=== PATIENT | female | born 1940 | race Caucasian/White ===

== ENCOUNTER 2017-03-01 10:41 | Inpatient (IN) | payer MEDICARE, OTHER ==
[2017-03-01] VITALS (9 sets, daily range): BP systolic 90–149; BP diastolic 59–79
[~2017-03-01] VITALS: Ht 167.6 cm; Wt 144.2 kg
--- NOTE | 2017-03-01 10:45 | NUR ---
patient brought in from [facility] via ambulance into room 1b. 12 lead ekg done. seen by dr lopez.
--- NOTE | 2017-03-01 11:10 | NUR ---
patient is confused, tracheostomy intact. connected to o2 cllar at 2 liters /min
[2017-03-01] MEDS ORDERED: IV NORMAL SALINE 1000 ML BAG IV ONE (11:15)
[2017-03-01] MEDS ORDERED: GENTAMICIN SULFATE INJ 80 MG in IV DEXTROSE 5% 100 ML IV ONE (11:15)
[2017-03-01] MEDS ORDERED: VANCOMYCIN IV 1,000 MG in IV DEXTROSE 5% 250 ML IV ONE (11:15)
[2017-03-01] MEDS ORDERED: METRONIDAZOLE 500 MG/NS 100ML 100 ML IV ONE ×2 (11:15→11:48)
[2017-03-01] MEDS ORDERED: MEROPENEM 1 G in IV NORMAL SALINE 100 ML IV ONE (11:15)
--- NOTE | 2017-03-01 11:17 | NUR ---
dr lopez at the bedside. triple lumen insertion in progress.
--- NOTE | 2017-03-01 11:27 | NUR ---
triple lumen catheter in via right femoral vein. blood specimen obtained and sent to lab for tests.
[2017-03-01 11:51] LABS: EOSINOPHILS % (AUTO) 0.4 % (0.0-7.0); HEMATOCRIT 35.8 % (31.2-41.9); HEMOGLOBIN 11.7 g/dL (10.9-14.3); LYMPHOCYTES # (AUTO) 0.3 K/uL (20.0-40.0); LYMPHOCYTES % (AUTO) 5.7 % (20.5-51.5); MEAN CORPUSCULAR HEMOGLOBIN 27.6 uug (24.7-32.8); MEAN CORPUSCULAR HGB CONC 33 g/dL (32.3-35.6); MEAN CORPUSCULAR VOLUME 84.1 fL (75.5-95.3); MONOCYTES # (AUTO) 0.3 K/uL (2.0-10.0); MONOCYTES % (AUTO) 6.3 % (0.0-11.0); NEUTROPHILS # (AUTO) 4.9 K/uL (1.8-8.9); NEUTROPHILS % (AUTO) 87.6 % (38.5-71.5); PLATELET COUNT (AUTO) 156 K/uL (179-408); RED BLOOD CELL COUNT(AUTO) 4.26 MIL/uL (3.63-4.92); RED CELL DISTRIBUTION WIDTH 18.1 % (12.3-17.7); WHITE BLOOD COUNT (AUTO) 5.5 K/uL (3.8-11.8)
[2017-03-01 11:53] LABS: TROPONIN I < 0.017 ng/mL (0.00-0.056)
[2017-03-01 11:58] LABS: ALBUMIN 2.4 g/dL (3.4-5.0); BILIRUBIN,DIRECT 0.3 mg/dL (0.0-0.2); CALCIUM 9.5 mg/dL (8.5-10.1); POTASSIUM 4.6 mmol/L (3.5-5.1); TOTAL PROTEIN, SERUM 6.9 g/dL (6.4-8.2)
[2017-03-01 12:04] LABS: CREATININE 4.1 mg/dL (0.6-1.3)
[2017-03-01] MEDS ORDERED: ATOR40TA GT (12:06)
[2017-03-01] MEDS ORDERED: DIPH25TA25 PO (12:06)
[2017-03-01] MEDS ORDERED: POTA20PA4 GT (12:06)
[2017-03-01] MEDS ORDERED: FAMO20TA8 GT (12:06)
[2017-03-01] MEDS ORDERED: [UNRECOGNIZED DRUG - OTHER] GT (12:06)
[2017-03-01] MEDS ORDERED: HYDR1TOW4 TP (12:06)
[2017-03-01] MEDS ORDERED: FURO40TA5 GT (12:06)
[2017-03-01] MEDS ORDERED: LORA0.5T PO (12:06)
[2017-03-01] MEDS ORDERED: LACT1TAB12 PO (12:06)
[2017-03-01] MEDS ORDERED: AMLO10TA2 GT (12:06)
[2017-03-01] MEDS ORDERED: HYDR1LIQ4 GT (12:06)
[2017-03-01] MEDS ORDERED: VITA113.3 TP (12:06)
[2017-03-01] MEDS ORDERED: METO50TA3 GT (12:06)
[2017-03-01] MEDS ORDERED: METO5SOL19 GT (12:06)
[2017-03-01] MEDS ORDERED: ACETAMINOPHEN SUPP RC (12:06)
[2017-03-01] MEDS ORDERED: IPRA3AMP IH ×2 (12:06)
[2017-03-01] MEDS ORDERED: ZINC220C6 GT (12:06)
[2017-03-01] MEDS ORDERED: ACET160S GT (12:06)
[2017-03-01] MEDS ORDERED: ASCO500T10 GT (12:06)
--- NOTE | 2017-03-01 12:19 | NUR ---
back to room post ct head. IV fluid started and flagyl started
[2017-03-01] MEDS ORDERED: GENTAMICIN SULFATE 80 MG/2 ML VIAL ONE (12:38)
[2017-03-01] MEDS ORDERED: MEROPENEM 1 G VIAL IV ONE (12:40)
[2017-03-01] MEDS ORDERED: VANCOMYCIN IV 200 ML ONE (12:41)
[2017-03-01 13:02] LABS: BAND % (MANUAL) 5 % (0-10); EOSINOPHILS % (MANUAL) 1 % (0-8); LYMPHOCYTES % (MANUAL) 15 % (20-40); MONOCYTES % (MANUAL) 5 % (2-10); NEUTROPHILS % (MANUAL) 74 % (42-75)
[2017-03-01 13:03] LABS: ANISOCYTOSIS 2+; PLATELET ESTIMATE ADEQUATE
--- NOTE | 2017-03-01 13:12 | NUR ---
attempted insertion of lock catheter , unsuccessful.
--- NOTE | 2017-03-01 13:17 | NUR ---
lock catheter #16 inserted aseptically.
--- NOTE | 2017-03-01 14:05 | NUR ---
report given to Augustine Stone RN . patient being admitted to ccu3 under Dr de souza
--- NOTE | 2017-03-01 14:15 | NUR ---
Telephone SBAR report received by TOLL MECHANICUCHE Martinez.
--- NOTE | 2017-03-01 14:20 | NUR ---
note: vital signs flowsheet states ET tube but [atient has trach tube to tpiece
--- NOTE | 2017-03-01 15:00 | NUR ---
transferred to room ccu3.
--- NOTE | 2017-03-01 15:06 | NUR ---
Pt received from ER with ed transporter. Pt A-fib HR 120's on monogram machine operator. Pt non-verbal and unable to follow commands. Pt stable and nad noted upon admission.
--- NOTE | 2017-03-01 16:45 | NUR ---
Spoke with Graham (son): on the telephone and updated on plan of care and pt's status. Son stated to keep the pt full code.
[2017-03-01] MEDS ORDERED: IV NS 1000 ML 1,000 ML IV PRN (18:00)
[2017-03-01] MEDS ORDERED: ACETAMINOPHEN 650 MG SUPP.RECT RC PRN (18:00)
[2017-03-01] MEDS ORDERED: DOPamine IV DRIP 800 MG in IV DEXTROSE 5% 250 ML IV PRN (18:00)
--- NOTE | 2017-03-01 18:35 | NUR ---
CLINICAL PHARMACY NOTE:VANCOMYCIN DOSING Request for vancomycin dosing on 76 y/o female 5'6" 250lb for sepsis Temp 97.3, BUN 95 Scr 4.1 WBC 5.5 bands 5 also on Merrem patient received vancomycin 1 gm in ER at 1238. Will order another 500mg of vancomycin ivpb today for a total of 1500mg today Random vancomycin level ordered for noon 03/02. Will dose base on fall off levels due to decreased renal function. Will continue to monitor
--- NOTE | 2017-03-01 19:00 | NUR ---
End of shift: Pt resting on Barimaxx bed with fall precautions and safety measures maintained. school lunch monitor and alarms working properly wnl. IV fluid bolus (sepsis protocol) infusing as ordered. Endorsed plan of care to artist model RN.
[2017-03-01 19:11] LABS: *BLOOD, URINE Trace-intact (NEGATIVE); *CLARITY,URINE CLOUDY (CLEAR); *COLOR,URINE DARK YELLOW (YELLOW); *KETONES,URINE 1+ (NEGATIVE); *PROTEIN,URINE 2+ (NEGATIVE); *UROBILINOGEN,URINE 0.2 E.U./dl (NORMAL); LEUKOCYTE ESTERASE ,URINE 1+ (NEGATIVE); NITRITE, URINE NEGATIVE (NEGATIVE); UGLUCOSE NEGATIVE (NEGATIVE)
[2017-03-01 19:12] LABS: *BILIRUBIN,URIN 2+ (NEGATIVE)
[2017-03-01 19:17] LABS: BACTERIA,URINE FEW /HPF (NONE SEEN); RBC,URINE 0-3 /HPF (0-3); SQUAMOUS EPITHELIAL CELL,UR FEW /HPF (NONE SEEN); WBC,URINE 20-50 /HPF (0-3)
--- NOTE | 2017-03-01 19:30 | NUR ---
Report received. Patient on trache mask mumbling incomprehensible sounds, doesn't follow any commands. Monitor: Afib rate 120's. Sepsis fluid challenge in progress. Addendum: 03/02/17 at 0746 by ROM HOOKS RN Amended: Links added.
[2017-03-01 19:31] LABS: *CREATININE,URINE 136.3 mg/dL (30-125); *URINE TOTAL PROTEIN RANDOM 320.3 mg/dL (<150/24HR)
[2017-03-01] MEDS ORDERED: VANCOMYCIN IV 500 MG in IV DEXTROSE 5% 100 ML IV ONE (20:00)
[2017-03-01] MEDS: ENOXAPARIN SODIUM 30 MG/0.3 ML DISP.SYRIN SUBCUT SCH (21:14)
--- NOTE | 2017-03-01 21:40 | NUR ---
Spoke to Dr. Davis re: patient's condition. No new orders. Addendum: 03/02/17 at 0743 by ROM HOOKS RN Amended: Links added.
[2017-03-01] MEDS: IV NS 1000 ML 1,000 ML IV PRN (21:45)
[2017-03-02] VITALS (24 sets, daily range): BP systolic 97–156; BP diastolic 40–86
[2017-03-02] MEDS: MEROPENEM 500 MG in IV NORMAL SALINE 50 ML IV SCH ×2 (02:05→13:59)
[2017-03-02] MEDS: Z GUARD REMEDY PASTE 57 GM TUBE TOP PRN (02:07)
[2017-03-02 05:26] LABS: CALCIUM 8.4 mg/dL (8.5-10.1); PHOSPHOROUS 4.3 mg/dL (2.5-4.9); POTASSIUM 4.2 mmol/L (3.5-5.1); TOTAL PROTEIN, SERUM 5.8 g/dL (6.4-8.2)
[2017-03-02 05:38] LABS: CREATININE 3.7 mg/dL (0.6-1.3)
[2017-03-02 05:55] LABS: BASOPHILS % (AUTO) 0.2 % (0.0-2.0); EOSINOPHILS # (AUTO) 0.1 K/uL (0.0-0.7); EOSINOPHILS % (AUTO) 2.3 % (0.0-7.0); HEMATOCRIT 29.8 % (31.2-41.9); LYMPHOCYTES # (AUTO) 0.3 K/uL (20.0-40.0); LYMPHOCYTES % (AUTO) 9.7 % (20.5-51.5); MEAN CORPUSCULAR HEMOGLOBIN 28.3 uug (24.7-32.8); MEAN CORPUSCULAR HGB CONC 34 g/dL (32.3-35.6); MEAN CORPUSCULAR VOLUME 84.2 fL (75.5-95.3); MONOCYTES # (AUTO) 0.2 K/uL (2.0-10.0); MONOCYTES % (AUTO) 7.3 % (0.0-11.0); NEUTROPHILS # (AUTO) 2.3 K/uL (1.8-8.9); NEUTROPHILS % (AUTO) 80.5 % (38.5-71.5); PLATELET COUNT (AUTO) 111 K/uL (179-408); RED BLOOD CELL COUNT(AUTO) 3.54 MIL/uL (3.63-4.92); RED CELL DISTRIBUTION WIDTH 18.6 % (12.3-17.7); WHITE BLOOD COUNT (AUTO) 2.9 K/uL (3.8-11.8)
[2017-03-02 06:12] LABS: ANISOCYTOSIS 2+; BAND % (MANUAL) 2 % (0-10); LYMPHOCYTES % (MANUAL) 13 % (20-40); MONOCYTES % (MANUAL) 9 % (2-10); NEUTROPHILS % (MANUAL) 76 % (42-75); PLATELET ESTIMATE DECREASED
[2017-03-02] MEDS: IV NS 1000 ML 1,000 ML IV PRN ×2 (06:50→18:40)
--- NOTE | 2017-03-02 08:00 | NUR ---
[facility] A[facility] OF PATIENT NEVER INITIATED PRESSORS AND HAS BEEN STABLE THROUGH THE NIGHT WHILE ROUNDING POSSIBLE DOWNGRADABLE.
[2017-03-02] MEDS: PANTOPRAZOLE SODIUM 40 MG VIAL IV SCH (08:23)
--- NOTE | 2017-03-02 14:50 | NUR ---
WOUND CARE CONSULT: PT PRESENTS WITH MULTIPLE SKIN ISSUES, PRESENT ON ADMISSION INCLUDING FLAKY SKIN, SMALL CALLUSES TO HEELS, ABDOMINAL WOUND AND OLD G TUBE SITE WITH PURULENT DRAINAGE AND SURROUNDING REDNESS. RECOMMEND SURGICAL CONSULT. SACRAL STAGE II ULCER NOTED, PRESENT ON ADMISSION. PT ON [facility] BED WITH ETS AIR. ALL SKIN AND WOUND RECOMMENDATIONS DISCUSSED WITH NURSING STAFF. MD IN AGREEMENT WITH PLAN OF CARE. Addendum: 03/02/17 at 1452 by MARINO VEE RN Amended: Links added.
[2017-03-02] MEDS ORDERED: MINERAL OIL/PETROLATUM,WHITE 57 GM TUBE TOP PRN (15:00)
--- NOTE | 2017-03-02 15:00 | NUR ---
WOUND CARE NURSE [facility] GT SITE. THERE WAS SURGEON CONSULT EVA FOR PHLEGMON FORMATION. LUIS FERNANDO INFORMED NOT CANDIDATE FOR PEG PLACEMENT DUE TO CT RESULT UNTIL PATIENT PHLEGMON RESOLVES AND NGT RECOMMENDATION FOR NUTRITION.
--- NOTE | 2017-03-02 16:17 | NUR ---
CLINICAL PHARMACY NOTE:VANCOMYCIN DOSING Subjective: Continuation of vancomycin dosing on 76 y/o female 5'6" 250lb for sepsis Objective: Temp 99.2 BUN 90 Scr 3.7 WBC 2.9 Random today @ 1200: 20.8 patient received vancomycin 1 gm in ER 03/01@ 1238.Extra dose of 500mg of vancomycin ivpb was then given at 2000 on 03/01 for a total of 1500mg on 03/01.Random due for noon today was supratherapeutic. Based on resolving Scr (MICHEAL), will continue to dose base on fall off levels. No dose will be given today, repeat random level due with tomorrow am labs. Will check and dose as appropriate. Will continue to monitor
--- NOTE | 2017-03-02 19:30 | NUR ---
Report received. Patient sleeping, easily arouses to name. No appropriate verbal responses. With trache, O2 trache mask 30%. Sat above 94%. NAD noted. On the Barimaxx @ air bed. Assessment done. Addendum: 03/03/17 at 0138 by ROM HOOKS RN Amended: Links added.
--- NOTE | 2017-03-02 20:30 | NUR ---
Abdominal wound culture sent to lab. Addendum: 03/02/17 at 2051 by ROM HOOKS RN Amended: Links added.
[2017-03-02] MEDS: ENOXAPARIN SODIUM 30 MG/0.3 ML DISP.SYRIN SUBCUT SCH (20:42)
[2017-03-03] VITALS (24 sets, daily range): BP systolic 110–152; BP diastolic 64–108
--- NOTE | 2017-03-03 | NUR ---
Flexi seal draining thick brown stools. Irrigated gently. Remains in Afib rate 100's-120's. BP stable. Addendum: 03/03/17 at 0738 by ROM HOOKS RN Amended: Links added.
[2017-03-03] MEDS: MEROPENEM 500 MG in IV NORMAL SALINE 50 ML IV SCH ×2 (01:39→13:40)
--- NOTE | 2017-03-03 04:00 | NUR ---
Am care rendered. Patient cooperative. Addendum: 03/03/17 at 0740 by ROM HOOKS RN Amended: Links added.
[2017-03-03] MEDS: IV NS 1000 ML 1,000 ML IV PRN ×2 (04:26→17:50)
[2017-03-03 05:28] LABS: ALBUMIN 1.9 g/dL (3.4-5.0); BILIRUBIN,TOTAL 0.8 mg/dL (0.2-1.0); CALCIUM 8.3 mg/dL (8.5-10.1); MAGNESIUM 2.8 mg/dL (1.8-2.4); PHOSPHOROUS 4.7 mg/dL (2.5-4.9); POTASSIUM 3.5 mmol/L (3.5-5.1); VANCOMYCIN,RANDOM 16.6 ug/mL (18.0-26.0)
[2017-03-03 05:36] LABS: BASOPHILS % (AUTO) 0.1 % (0.0-2.0); EOSINOPHILS # (AUTO) 0.3 K/uL (0.0-0.7); EOSINOPHILS % (AUTO) 9.4 % (0.0-7.0); HEMOGLOBIN 9.8 g/dL (10.9-14.3); LYMPHOCYTES # (AUTO) 0.4 K/uL (20.0-40.0); LYMPHOCYTES % (AUTO) 11.8 % (20.5-51.5); MEAN CORPUSCULAR HEMOGLOBIN 28.6 uug (24.7-32.8); MEAN CORPUSCULAR HGB CONC 34 g/dL (32.3-35.6); MEAN CORPUSCULAR VOLUME 84.8 fL (75.5-95.3); MONOCYTES # (AUTO) 0.3 K/uL (2.0-10.0); NEUTROPHILS # (AUTO) 2.1 K/uL (1.8-8.9); NEUTROPHILS % (AUTO) 69.7 % (38.5-71.5); PLATELET COUNT (AUTO) 119 K/uL (179-408); RED BLOOD CELL COUNT(AUTO) 3.41 MIL/uL (3.63-4.92); RED CELL DISTRIBUTION WIDTH 18.6 % (12.3-17.7); WHITE BLOOD COUNT (AUTO) 3.1 K/uL (3.8-11.8)
[2017-03-03 05:51] LABS: BAND % (MANUAL) 4 % (0-10); EOSINOPHILS % (MANUAL) 9 % (0-8); LYMPHOCYTES % (MANUAL) 15 % (20-40); MONOCYTES % (MANUAL) 8 % (2-10); NEUTROPHILS % (MANUAL) 64 % (42-75)
[2017-03-03 05:52] LABS: ANISOCYTOSIS 2+; PLATELET ESTIMATE DECREASED
--- NOTE | 2017-03-03 06:00 | NUR ---
Shahidi seal irrigated again. Draining liquid brown yellow stools. Condition unchanged. VS stable. Addendum: 03/03/17 at 0742 by ROM HOOKS RN Amended: Links added.
[2017-03-03] MEDS: PANTOPRAZOLE SODIUM 40 MG VIAL IV SCH (08:36)
--- NOTE | 2017-03-03 08:55 | NUR ---
Dr. Cadena in the unit to see patient; full report given.
[2017-03-03] MEDS ORDERED: VANCOMYCIN IV 1,500 MG in IV DEXTROSE 5% 500 ML IV ONE (09:00)
--- NOTE | 2017-03-03 09:01 | NUR ---
Dr. Ross GI services in the unit to see patient; full report given orders to continue monitor and await for surgery consult.
[2017-03-03 09:29] LABS: ABG BASE EXCESS -5.2 mmol/L; ABG HCO3 18.6 mmol/L; ABG PCO2 31.7 mmHg (35.0-45.0); ABG PH 7.387 (7.350-7.450); ABG PO2 107.8 mmHg (75.0-100.0); ABG SITE RIGHT RADIAL; VENT MODE COOL AEROSOL
--- NOTE | 2017-03-03 10:23 | NUR ---
Patient placed on High Flow to keep SPO2 above 92%. 80% FIO2.
--- NOTE | 2017-03-03 10:38 | NUR ---
CLINICAL PHARMACY NOTE:VANCOMYCIN DOSING Subjective: Continuation of vancomycin dosing on 76 y/o female 5'6" 250lb for sepsis Objective: Temp 98.6 BUN 80 Scr 3 (MICHEAL) WBC 5.5 Random today @ 0600: 16.6 Plan Since random level today is within therapeutic range, will give vancomycin 1500mg IVPB x1 today at 0900. Based on resolving Scr (MICHEAL), will continue to dose base on fall off levels. Will review srcr in am & decide when to order the next random level for further dosing. Will continue to monitor
[2017-03-03 14:10] LABS: PTH, INTACT 31 pg/mL (15-65)
--- NOTE | 2017-03-03 19:08 | NUR ---
Dr. Manning in the unit to see patient full report given.
--- NOTE | 2017-03-03 19:30 | NUR ---
Report received. Patient AA, follows simple commands. On contact isolation pending results of cultures. O2 by T piece @ 30 %. sat above 94%. Assessment completed. Dr. Gifford here to see patient. Call placed to Dr. Manning to clarify orders of wound cultures.
--- NOTE | 2017-03-03 19:45 | NUR ---
Dr. Manning called back. Informed that Dr. Gifford will do incision and drainage of abdominal abscess tomorrow. Dr. Manning ordered to change all cultures of wound tomorrow during the procedure.
--- NOTE | 2017-03-03 20:30 | NUR ---
Abdominal wound care treatment done. With extending erythema noted to L side of abdomen.
--- NOTE | 2017-03-03 20:50 | NUR ---
Patient' son Graham called and informed of surgery for tomorrow. Phone consent obtained. Addendum: 03/03/17 at 2135 by ROM HOOKS RN Amended: Links added.
--- NOTE | 2017-03-03 21:35 | NUR ---
Call placed to Dr. Gifford re: Lovenox dose @ 2100. Dr. Gifford called back and okayed to give dose of Lovenox tonight.
[2017-03-03] MEDS: ENOXAPARIN SODIUM 30 MG/0.3 ML DISP.SYRIN SUBCUT SCH (21:40)
--- NOTE | 2017-03-03 22:35 | NUR ---
Transferred to 208. Report given to Ramandeep IVEY.
--- NOTE | 2017-03-03 22:37 | NUR ---
PT WITH RT ASSIST FOR TRANSPORT @ 22:30, FROM CCU -3 TO 208 , DOING WELL, PT WITH NO RESP. DISTRESS NOTED, PT WITH TRACH ,BACK TO COOL AEROSOL VIA T/TUBE @ 30%. Jag STYLESP Addendum: 03/03/17 at 2240 by NATHANIEL ARIAS RT Amended: Links added.
[2017-03-04] VITALS (12 sets, daily range): BP systolic 109–171; BP diastolic 65–101
[2017-03-04] MEDS ORDERED: DILTIAZEM HCL 25 MG IV IV ONE (02:00)
--- NOTE | 2017-03-04 02:01 | NUR ---
nsg: pt is in rapid afib with hr 129-140's, with bp of 114/61. spoke with Dr. Lyon, received order for cardizem 10mg ivp x 1.
[2017-03-04] MEDS: MEROPENEM 500 MG in IV NORMAL SALINE 50 ML IV SCH ×2 (02:04→17:33)
--- NOTE | 2017-03-04 02:04 | NUR ---
nsg: cardizem 10mg ivp was given, with hr of 130's afib rvr. cont to monitor.
--- NOTE | 2017-03-04 06:00 | NUR ---
nsg: pt awake, confused. tele, afib hr 100-110. all needs attended. cont to monitor.
[2017-03-04 08:29] LABS: A/G RATIO 0.8 (0.7-1.7); ALBUMIN 2.2 g/dL (2.9-4.4); ALPHA-1-GLOBULIN 0.4 g/dL (0.0-0.4); ALPHA-2-GLOBULIN 0.9 g/dL (0.4-1.0); BETA GLOBULIN 0.8 g/dL (0.7-1.3); GAMMA GLOBULIN 0.9 g/dL (0.4-1.8); GLOBULIN, TOTAL 2.9 g/dL (2.2-3.9); M-SPIKE Not Observed g/dL (Not Observed)
[2017-03-04] MEDS: PANTOPRAZOLE SODIUM 40 MG VIAL IV SCH (09:06)
[2017-03-04 09:22] LABS: CALCIUM 8.5 mg/dL (8.5-10.1); POTASSIUM 3.1 mmol/L (3.5-5.1)
[2017-03-04 09:34] LABS: CREATININE 2.1 mg/dL (0.6-1.3)
--- NOTE | 2017-03-04 10:22 | NUR ---
CLINICAL PHARMACY NOTE:VANCOMYCIN DOSING Subjective: Continuation of vancomycin dosing on 76 y/o female for sepsis due to bacteremia & skin& soft tissue infection of abdominal wall Objective: Temp 98.2 BUN 65 Scr 2.1 (MICHEAL) WBC 5.5 (03/03) Plan Will continue to dose base on fall off levels (unstable srcr). Patient received vancomycin 1500mg IVPB x1 on 03/03 at 0830.Since srcr has decreased, will check vancomycin random level today at 1800. Will review level when available & dose further if needed. Will continue to monitor
[2017-03-04] MEDS ORDERED: BUPIVACAINE/EPI PF 0.5% 10 ML VIAL ONE (12:06)
[2017-03-04] MEDS ORDERED: LIDOCAINE HCL 1% 20 ML VIAL ONE (12:07)
[2017-03-04] MEDS ORDERED: ROCURONIUM BROMIDE 50 MG/5 ML VIAL ONE (13:31)
[2017-03-04] MEDS ORDERED: PROPOFOL 200 MG/20 ML BOTTLE IV ONE (13:44)
[2017-03-04] MEDS ORDERED: IV 0.45% SODIUM CHLORIDE 1000 ML BAG IV ONE (13:44)
[2017-03-04] MEDS ORDERED: ESMOLOL HCL 100 MG/10 ML VIAL IV ONE (13:44)
[2017-03-04] MEDS ORDERED: SEVOFLURANE 250 ML BOTTLE IH ONE (13:44)
--- NOTE | 2017-03-04 13:44 | NUR ---
PT TRANSPORTED TO SURGERY FOR SCHEDULED I&D OF ABDOMINAL WOUND OF GT INSERTION SITE. STABLE. NOTE THAT PHYSICIAN DR. KATHLEEN AWARE OF PT'S SODIUM OF 162, SPOKE WITH ANESTHESIOLOGIST IN THE OR.
--- NOTE | 2017-03-04 14:45 | NUR ---
Pt in recovery room, post op, placed on vent: Carey with settings: A/C 16, 600, +5, FiO2 30%, no abg per . stated to wean pt to cool aerosol as tolerated, per Tamela IVEY we will contact for weaning orders.. will continue to monitor..
[2017-03-04] MEDS ORDERED: MIDAZOLAM HCL 2 MG/2 ML VIAL ONE (14:58)
[2017-03-04] MEDS ORDERED: LABETALOL HCL 100 MG/20 ML VIAL ONE (15:12)
[2017-03-04] MEDS ORDERED: FENTANYL CITRATE 100 MCG/2 ML AMPUL ONE (15:16)
--- NOTE | 2017-03-04 16:00 | NUR ---
Pt transferred to CCU, BVM used for transport, assisted with transport by Sangeetha HARTMAN and Tamela IVEY.. transported without incident..
--- NOTE | 2017-03-04 16:10 | NUR ---
received patient from pacu arousable and alert with trach connected to ventilator.iv changed to right ac because the right femoral triple lumen is suspected to be in artery not vein according to anesthesiologist dr. turner and vascular md was already notified .abdomen with dressing pack in or dry and intact. redness the left side of abdomen marked where redness is.blood cultures positive and ronnie mckeon here and made aware and she said she already knew and change the antibiotic.patient with trach and connected to ventilator with tv 600 ac 16 and peep of 5 and fio2 30%.trach suctioned with thick white mucous.
--- NOTE | 2017-03-04 17:00 | NUR ---
merren that was due at 1400 not given at that time because patient was in sugery so given at 1730 in ccu.PATIENT ORAL CARE DONE AND REPOSITION VIA BED CONTROL. DR. CUADRA NOTIFIED OF PATIENT'S VENTILATOR AND OKAY TO WEAN PATIENT BACK TO AEROSOL. DOES NOT WANT PATIENT TO BE SERAFIN STATUS.RRESTING COMFORTABLY .
[2017-03-04] MEDS: IV D5W 1000ML 1,000 ML IV PRN (17:33)
--- NOTE | 2017-03-04 18:11 | NUR ---
Late Entry for 03/04/17, 1245hrs: Pt picked up for surgery by OR staff. Pt stable, saline locked. Note that STANDARDS ANALYST was notified per earlier report that pt had Merrem scheduled for 1400hrs.
--- NOTE | 2017-03-04 19:10 | NUR ---
received patient awake,alert,responsive to verbal stimuli,dressing to abdomen clean ,dry ,intact,bp 148/85,a fib with pvc on monitor,patient appears relax,no s/s of pain noted.
--- NOTE | 2017-03-04 19:46 | NUR ---
Post op pt received on Carey vent with settings of AC 16, VT 600, Peep +5, FiO2 30%. Per Tamela IVEY md orders to D/C ventilator and place pt on cool aerosol 30%. Pt is awake and alert and responsive to verbal stimuli. No signs of respiratory distress noted at this time. Per MD order, pt taken off vent and placed on 30% cool aerosol. Asked pt if she is comfortable, pt nodded her head in agreement. Monitored pt, no signs or symptoms of respiratory distress, pt is awake and alert. Saturation 98%-100%. UCHE Mccormick aware pt is now on cool aerosol. Will continue to monitor pt throughout shift.
--- NOTE | 2017-03-04 20:00 | NUR ---
RT-Michele d/c ventilator and start weaning to Aerosol 30% as ordered,patient tolerated well,oral care and suction given with moderate thick ,greenish,yellow mucous.
[2017-03-04] MEDS: LINEZOLID IV 600 MG in PREMIXED 1 EACH IV SCH (21:19)
[2017-03-04] MEDS: ENOXAPARIN SODIUM 30 MG/0.3 ML DISP.SYRIN SUBCUT SCH (21:20)
[2017-03-05] VITALS (13 sets, daily range): BP systolic 124–166; BP diastolic 61–103
--- NOTE | 2017-03-05 | NUR ---
patient sleep intermittently,in no acute distress,o2 sat 98%-100% on cold Aerosol,suction and mouth care given.
[2017-03-05] MEDS: Z GUARD REMEDY PASTE 57 GM TUBE TOP PRN ×2 (01:31→21:13)
[2017-03-05] MEDS: MEROPENEM 500 MG in IV NORMAL SALINE 50 ML IV SCH ×2 (03:00→16:09)
[2017-03-05] MEDS: IV D5W 1000ML 1,000 ML IV PRN ×2 (04:15→21:11)
--- NOTE | 2017-03-05 05:42 | NUR ---
patient tolerated cold Aerosol 30%,Spo2 96%-100% most of times, no s/s of respiratory distress noted, patient being turn and repositioning Q2h,patient has adequate urine out put,bp stable and wnl,Flexi seal rectal tube intact 50 ml of liquid stool out put.
[2017-03-05 05:46] LABS: EOSINOPHILS # (AUTO) 0.2 K/uL (0.0-0.7); NEUTROPHILS # (AUTO) 3.5 K/uL (1.8-8.9); WHITE BLOOD COUNT (AUTO) 4.7 K/uL (3.8-11.8)
[2017-03-05 05:49] LABS: EOSINOPHILS % (AUTO) 4.3 % (0.0-7.0); HEMATOCRIT 31.6 % (31.2-41.9); HEMOGLOBIN 10.8 g/dL (10.9-14.3); LYMPHOCYTES # (AUTO) 0.5 K/uL (20.0-40.0); LYMPHOCYTES % (AUTO) 9.8 % (20.5-51.5); MEAN CORPUSCULAR HEMOGLOBIN 28.3 uug (24.7-32.8); MEAN CORPUSCULAR HGB CONC 34 g/dL (32.3-35.6); MEAN CORPUSCULAR VOLUME 83.2 fL (75.5-95.3); MONOCYTES # (AUTO) 0.5 K/uL (2.0-10.0); MONOCYTES % (AUTO) 11.8 % (0.0-11.0); NEUTROPHILS % (AUTO) 74.1 % (38.5-71.5); PLATELET COUNT (AUTO) 138 K/uL (179-408); RED CELL DISTRIBUTION WIDTH 17.8 % (12.3-17.7)
[2017-03-05 06:09] LABS: ALBUMIN 1.8 g/dL (3.4-5.0); BILIRUBIN,TOTAL 0.8 mg/dL (0.2-1.0); MAGNESIUM 2.2 mg/dL (1.8-2.4); PHOSPHOROUS 3.8 mg/dL (2.5-4.9); TOTAL PROTEIN, SERUM 5.9 g/dL (6.4-8.2)
[2017-03-05 06:16] LABS: CREATININE 1.8 mg/dL (0.6-1.3); POTASSIUM 2.8 mmol/L (3.5-5.1)
[2017-03-05 06:40] LABS: ANISOCYTOSIS 1+; BAND % (MANUAL) 1 % (0-10); EOSINOPHILS % (MANUAL) 5 % (0-8); LYMPHOCYTES % (MANUAL) 22 % (20-40); MONOCYTES % (MANUAL) 11 % (2-10); NEUTROPHILS % (MANUAL) 61 % (42-75); PLATELET ESTIMATE DECREASED
[2017-03-05] MEDS: PANTOPRAZOLE SODIUM 40 MG VIAL IV SCH (07:55)
[2017-03-05] MEDS: LINEZOLID IV 600 MG in PREMIXED 1 EACH IV SCH ×2 (07:55→20:54)
--- NOTE | 2017-03-05 08:00 | NUR ---
Pt received resting on Barimaxx bed with fall precautions and safety measures maintained. Pt awake and alert. scow captain and alarms working properly wnl. Pt on aersol t-mist 30% FiO2. VSS wnl. Pt on DVT pumps on bilaterally. Pt hemodynamically stable and nad noted.
--- NOTE | 2017-03-05 09:30 | NUR ---
Spoke with Dr. Roy on the telephone regarding pt's low potassium levels 2.8L. New orders received and carried out. also stated that it was okay to downgrade pt to SERAFIN status.
[2017-03-05] MEDS: POTASSIUM CHLORIDE 50 ML IV SCH ×4 (10:53→14:05)
--- NOTE | 2017-03-05 11:49 | NUR ---
Spoke with Dr. Roy and stated that it was okay to put an NG tube on pt and start feeding as tolerated.
[2017-03-05] MEDS: hydrALAZINE HCL 20 MG/1 ML VIAL IV PRN ×2 (14:43→21:15)
[2017-03-05] MEDS: PEPTAMEN AF 1000ML BAG NG PRN (17:12)
--- NOTE | 2017-03-05 19:27 | NUR ---
Endof shift: Pt awake and alert resting on Barimaxx bed with fall precautions and safety measures maintained. hot roll inspector and alarms working properly wnl. Pt on aersol t-mist 30% FiO2. VSS wnl. Pt on DVT pumps on bilaterally. IVF infusing as ordered. Pt hemodynamically stable and nad noted.
--- NOTE | 2017-03-05 19:30 | NUR ---
Report received. Patient awake, able to follow simple commands. O2 by T piece via trache @ 30%. Sat above 94%. Assessment completed. Addendum: 03/05/17 at 2355 by ROM HOOKS RN Amended: Links added. Addendum: 03/06/17 at 0014 by ROM HOOKS RN Amended: Links added.
--- NOTE | 2017-03-05 19:45 | NUR ---
Abdominal dressing intact. Surgical areas with redness extending to L side of abdomen. TLC R femoral area intact; with sign not to use and as per report will be evaluated by Vascular MD. Dressing soaked with serosanguineous drainage. Changed.
--- NOTE | 2017-03-05 20:00 | NUR ---
On contact isolation. Skin care provided. Flexi seal gently irrigated; with yellow brown stools. Addendum: 03/06/17 at 0014 by ROM HOOKS RN Amended: Links added.
[2017-03-05] MEDS: ENOXAPARIN SODIUM 30 MG/0.3 ML DISP.SYRIN SUBCUT SCH (20:54)
--- NOTE | 2017-03-05 21:15 | NUR ---
heypertensive. JM=673/90. hydralazine IV given (unable to scan medication vial). Addendum: 03/05/17 at 2351 by ROM HOOKS RN Hypertensive.
--- NOTE | 2017-03-05 23:00 | NUR ---
Pulled out NGT; reinserted without difficulty. Patient advised.
[2017-03-06] VITALS (9 sets, daily range): BP systolic 112–153; BP diastolic 67–104
--- NOTE | 2017-03-06 | NUR ---
NGT feedings increased to 30 ml/H. No residuals. Addendum: 03/06/17 at 0148 by ROM HOOKS RN Amended: Links added.
[2017-03-06] MEDS: MEROPENEM 500 MG in IV NORMAL SALINE 50 ML IV SCH ×2 (01:37→13:14)
--- NOTE | 2017-03-06 04:30 | NUR ---
Wound care treatment done. With small amounts of serosanguineous drainage from surgical wound. Photos taken.
[2017-03-06 05:24] LABS: BASOPHILS % (AUTO) 0.2 % (0.0-2.0); EOSINOPHILS # (AUTO) 0.5 K/uL (0.0-0.7); EOSINOPHILS % (AUTO) 7.6 % (0.0-7.0); HEMATOCRIT 31.7 % (31.2-41.9); HEMOGLOBIN 10.4 g/dL (10.9-14.3); LYMPHOCYTES # (AUTO) 1.1 K/uL (20.0-40.0); LYMPHOCYTES % (AUTO) 16.7 % (20.5-51.5); MEAN CORPUSCULAR HEMOGLOBIN 27.8 uug (24.7-32.8); MEAN CORPUSCULAR HGB CONC 33 g/dL (32.3-35.6); MEAN CORPUSCULAR VOLUME 84.3 fL (75.5-95.3); MONOCYTES # (AUTO) 0.6 K/uL (2.0-10.0); MONOCYTES % (AUTO) 9.3 % (0.0-11.0); NEUTROPHILS # (AUTO) 4.1 K/uL (1.8-8.9); NEUTROPHILS % (AUTO) 66.2 % (38.5-71.5); PLATELET COUNT (AUTO) 161 K/uL (179-408); RED BLOOD CELL COUNT(AUTO) 3.76 MIL/uL (3.63-4.92); RED CELL DISTRIBUTION WIDTH 17.9 % (12.3-17.7); WHITE BLOOD COUNT (AUTO) 6.3 K/uL (3.8-11.8)
[2017-03-06 05:33] LABS: ALBUMIN 1.8 g/dL (3.4-5.0); BILIRUBIN,TOTAL 0.9 mg/dL (0.2-1.0); CALCIUM 7.9 mg/dL (8.5-10.1); MAGNESIUM 1.9 mg/dL (1.8-2.4); PHOSPHOROUS 3.2 mg/dL (2.5-4.9); POTASSIUM 2.9 mmol/L (3.5-5.1)
[2017-03-06 05:49] LABS: CREATININE 1.5 mg/dL (0.6-1.3)
[2017-03-06] MEDS: IV D5W 1000ML 1,000 ML IV PRN ×2 (06:24→19:30)
--- NOTE | 2017-03-06 06:40 | NUR ---
Stable on T piece @ 30% O2. Sleeping after bath. Tolerating NGT feedings well. Addendum: 03/06/17 at 0641 by ROM HOOKS RN Amended: Links added.
[2017-03-06] MEDS: PANTOPRAZOLE SODIUM 40 MG VIAL IV SCH (07:36)
[2017-03-06] MEDS: LINEZOLID IV 600 MG in PREMIXED 1 EACH IV SCH ×2 (07:37→21:19)
--- NOTE | 2017-03-06 08:00 | NUR ---
Pt awake and alert resting on Barimaxx bed with fall precautions and safety measures maintained. lunchroom monitor and alarms working properly wnl. Pt on aersol t-mist 30% FiO2. VSS wnl. Pt on DVT pumps on bilaterally. Graves catheter intact and draining properly. Flexi seal intact and draining properly. IVF and g-tube feeding infusing as ordered. Pt hemodynamically stable and nad noted.
[2017-03-06] MEDS ORDERED: SODIUM HYPOCHLORITE 0.125% 473 ML BOTTLE TP PRN (08:30)
[2017-03-06] MEDS: SODIUM HYPOCHLORITE 0.125% 473 ML BOTTLE TP SCH (09:18)
--- NOTE | 2017-03-06 09:51 | NUR ---
Dr. Gautam here to see pt. Full report given. New orders received.
--- NOTE | 2017-03-06 10:54 | NUR ---
Dr. Roy here to see pt. Full report given. New orders received and carried out.
[2017-03-06] MEDS: POTASSIUM CHLORIDE 20 MEQ POWDER PACKET NG SCH ×2 (11:05→15:23)
--- NOTE | 2017-03-06 18:44 | NUR ---
Telephone SBAR report given to UCHE Hsu.
--- NOTE | 2017-03-06 19:20 | NUR ---
Brought the pt up with respiratory therapist to 2nd floor tele room#208. telemetry monitor applied during transport. Pt stable and nad noted upon transfer.
--- NOTE | 2017-03-06 19:30 | NUR ---
RECEIVED PT FROM ICU, USHERED TO ROOM. HOB ELEVATED, PLACED IN COMFORTABLE POSITION. CALM AND COMFORTABLE. NO ACUTE DISTRESS NOTED. AFIB ON MONITOR, ON AEROSOL MIST 30% WITH SATURATION OF 98%. WITH NGT ON RIGHT NARE WITH FEEDING AT 40CC/HR. IV ON RFA#20 INTACT AND PATENT. NEEDS ATTENDED. INSTRUCTED HOW TO USE CALL LIGHT WHEN IN NEED OF ASSISTANCE. CALL LIGHT WITHIN REACH. WILL CONTINUE TO MONITOR
[2017-03-06] MEDS: ENOXAPARIN SODIUM 30 MG/0.3 ML DISP.SYRIN SUBCUT SCH (21:20)
[2017-03-07 00:17] VITALS: BP 130/65
--- NOTE | 2017-03-07 00:20 | NUR ---
PT SLEEPING COMFORTABLY. NO ACUTE DISTRESS NOTED. V/S WNL . WILL CONTINUE TO MONITOR
[2017-03-07] MEDS: MEROPENEM 500 MG in IV NORMAL SALINE 50 ML IV SCH ×2 (01:59→13:27)
--- NOTE | 2017-03-07 02:27 | NUR ---
SUCTIONED NEEDED. MOUTH CARE PROVIDED.
--- NOTE | 2017-03-07 03:00 | NUR ---
INCREASED FEEDING BY 10CC, NOW AT 50CC/HR. WILL MONITOR
[2017-03-07 04:00] VITALS: BP 133/79
[2017-03-07] MEDS: PEPTAMEN AF 1000ML BAG NG PRN (05:55)
--- NOTE | 2017-03-07 06:00 | NUR ---
SLEPT INTERMITTENTLY DURING THE SHIFT. NO ACUTE DISTRESS NOTED. STILL AFIB WITH OCCASIONAL PVCs. UNABLE TO OBTAIN WEIGHT AT THIS TIME DUE TO BED NEEDS TO BE CALIBRATED. WILL ENDORSE TO NEXT SHIFT. ALL DUE MEDS GIVEN ORDERED. TURNED, REPOSITIONED AND OFFLOADED. SKIN CARE PROVIDED. SUCTIONED PRN. TOLERATED FEEDING AT 50CC/HR. CALL LIGHT WITHIN REACH.
[2017-03-07 07:15] VITALS: BP 134/81
[2017-03-07 07:45] LABS: CALCIUM 7.4 mg/dL (8.5-10.1); CREATININE 1.3 mg/dL (0.6-1.3); MAGNESIUM 1.8 mg/dL (1.8-2.4); PHOSPHOROUS 3.5 mg/dL (2.5-4.9); POTASSIUM 3.2 mmol/L (3.5-5.1)
[2017-03-07 07:50] LABS: BASOPHILS % (AUTO) 0.1 % (0.0-2.0); EOSINOPHILS # (AUTO) 0.6 K/uL (0.0-0.7); EOSINOPHILS % (AUTO) 8.6 % (0.0-7.0); HEMOGLOBIN 9.4 g/dL (10.9-14.3); LYMPHOCYTES # (AUTO) 1.4 K/uL (20.0-40.0); LYMPHOCYTES % (AUTO) 21.4 % (20.5-51.5); MEAN CORPUSCULAR HGB CONC 33 g/dL (32.3-35.6); MEAN CORPUSCULAR VOLUME 84.5 fL (75.5-95.3); MONOCYTES # (AUTO) 0.6 K/uL (2.0-10.0); MONOCYTES % (AUTO) 9.1 % (0.0-11.0); NEUTROPHILS # (AUTO) 3.8 K/uL (1.8-8.9); NEUTROPHILS % (AUTO) 60.8 % (38.5-71.5); PLATELET COUNT (AUTO) 169 K/uL (179-408); RED BLOOD CELL COUNT(AUTO) 3.35 MIL/uL (3.63-4.92); RED CELL DISTRIBUTION WIDTH 18.1 % (12.3-17.7); WHITE BLOOD COUNT (AUTO) 6.4 K/uL (3.8-11.8)
[2017-03-07 07:58] LABS: HEMATOCRIT 28.3 % (31.2-41.9)
--- NOTE | 2017-03-07 08:00 | NUR ---
awake alert, follows commands, asking for water- oral care given, denies of pain, NGT in place - Peptamen infusing at 50ml/hr- no residual noted, on P mist 30 % via tracheostomy, sat at 99%, suctioned of small amount of thick yellow phlegm, abdominal dsg dry and intact, dependent edema noted, both arms elevated on pillows, repositioned with heels off loaded with pillows, flexiseal rectal tube with liquid stool yellowish. kept comfortable, call lite within reach
[2017-03-07] MEDS: PANTOPRAZOLE SODIUM 40 MG VIAL IV SCH (08:17)
[2017-03-07] MEDS: SODIUM HYPOCHLORITE 0.125% 473 ML BOTTLE TP SCH (08:18)
[2017-03-07] MEDS: LINEZOLID IV 600 MG in PREMIXED 1 EACH IV SCH ×2 (08:18→21:51)
--- NOTE | 2017-03-07 10:30 | NUR ---
seen by Dr Briggs
--- NOTE | 2017-03-07 11:00 | NUR ---
tube fdg increased to 60ml/hr-(goal 75ml/hr)-tolerating well, no residual noted
[2017-03-07 11:05] LABS: ANISOCYTOSIS 2+; OVALOCYTES 1+
--- NOTE | 2017-03-07 11:08 | NUR ---
The patient's son, Graham [ ], called and stated that his father, Kishore, is currently in [facility] so he will be the main material handler floorperson even though he is in [facility]. He also wanted to find out what his choices of facilities are because he felt that [facility] did not have enough staff to stop the patient from pulling her g-tube. Provided him with the [email or web address] link and referred him to different sub-acute facilities near the area. This licensed practical nurse will also ask Dr. Davis of their SNF of choice for continuity of care. Spoke to Salome from [facility] and informed her of the family's concerns. CM/SW will follow-up.
--- NOTE | 2017-03-07 11:30 | NUR ---
seen by Dr Gautam with order
[2017-03-07 12:00] VITALS: BP 133/79
[2017-03-07] MEDS: IV D5W 1000ML 1,000 ML IV PRN (12:14)
--- NOTE | 2017-03-07 14:52 | NUR ---
seen by Dr Lane
[2017-03-07 16:00] VITALS: BP 146/81
--- NOTE | 2017-03-07 16:29 | NUR ---
flexiseal not working- almost out, incontinent of liquid stools- flexiseal removed, washed and kept clean and dry, repositioned q 2h with heels off loaded with pillows. NGT in place- tube fdg infusing well- 150ml flushes given as ordered, kept head of bed elevated for aspiration precaution, suctioned of thick small amount of phlegm via tracheostomy
[2017-03-07] MEDS: POTASSIUM CHLORIDE 50 ML IV SCH ×4 (17:17→20:42)
--- NOTE | 2017-03-07 17:54 | NUR ---
no distress noted, tele a fib ct 90's, denies of pain, repositioned q 2h with heel off loaded at all times, suctioned via tracheostomy as needed, all needs attended and met, safety measures maintained
--- NOTE | 2017-03-07 19:30 | NUR ---
nsg: pt received awake, alert, no acute distress noted. currently receiving TF at 60ml per hr, no residual. increased TF rate to 75ml for goal rate. tele, controlled afib. on cont ivf at 75ml/hr. has generalized edema. will call MD to review, pt might have fluid overload due to infusing ivf and TF. cont to monitor.
[2017-03-07 19:52] VITALS: BP 146/94
--- NOTE | 2017-03-07 20:30 | NUR ---
nsg: received order fr Dr. Gifford to d/c ivf.
--- NOTE | 2017-03-07 21:00 | NUR ---
nsg: inserted rectal tube. pt tolerated procedure well.
[2017-03-07] MEDS: ENOXAPARIN SODIUM 30 MG/0.3 ML DISP.SYRIN SUBCUT SCH (21:51)
[2017-03-08 00:31] VITALS: BP 131/98
[2017-03-08] MEDS: MEROPENEM 500 MG in IV NORMAL SALINE 50 ML IV SCH ×2 (02:55→14:23)
[2017-03-08 04:00] VITALS: BP 157/87
--- NOTE | 2017-03-08 06:00 | NUR ---
NSG: ALL NEEDS ATTENDED. NO ACUTE DISTRESS NOTED. TELE, AFIB. CONT TO MONITOR.
[2017-03-08 07:50] LABS: CALCIUM 7.5 mg/dL (8.5-10.1); CREATININE 1.1 mg/dL (0.6-1.3); POTASSIUM 3.4 mmol/L (3.5-5.1)
[2017-03-08 07:52] VITALS: BP 141/90
--- NOTE | 2017-03-08 08:00 | NUR ---
awake alert, able to let her needs known, follows commands, on P mist 30% via tracheostomy, sat at 99%, kept head of bed elevated, NGT in place and patent, Peptamen feeding infusing at 75 ml/hr- no residual noted, both arms swollen worst on the right arm- Both elevated on pillows, abdominal dsg dry and intact, flexiseal with yellowish liquid stool in the bag and tubing, on Bariatric bed, safety measures maintained, repositioned for comfort with heels off loaded with pillows
[2017-03-08] MEDS: PANTOPRAZOLE SODIUM 40 MG VIAL IV SCH (08:20)
[2017-03-08] MEDS: LINEZOLID IV 600 MG in PREMIXED 1 EACH IV SCH ×2 (08:33→20:56)
[2017-03-08] MEDS: SODIUM HYPOCHLORITE 0.125% 473 ML BOTTLE TP SCH (08:34)
--- NOTE | 2017-03-08 09:00 | NUR ---
iv site infiltrated- Dr Roy here and informed- okay to insert midline
[2017-03-08] MEDS ORDERED: BUMETANIDE INJ 2 MG in IV DEXTROSE 5% 32 ML IV ONE (09:30)
--- NOTE | 2017-03-08 10:00 | NUR ---
Dr Wilkins inserted midline IV on the right upper arm
[2017-03-08 10:37] LABS: ABG BASE EXCESS -1.4 mmol/L; ABG HCO3 22.3 mmol/L; ABG PCO2 33.5 mmHg (35.0-45.0); ABG PH 7.441 (7.350-7.450); ABG PO2 95.9 mmHg (75.0-100.0); ABG SITE RIGHT RADIAL; ABG TOTAL HEMOGLOBIN 10.3 G/dL (12.0-16.0); COHb 1.1 % (0.5-1.5); MetHb 0.2 % (0.0-1.5); O2Hb 96.6 % (94.0-97.0)
[2017-03-08] MEDS: POTASSIUM CHLORIDE 50 ML IV SCH ×2 (11:02→15:39)
[2017-03-08 11:40] VITALS: BP 150/85
--- NOTE | 2017-03-08 12:00 | NUR ---
tolerating tube fdg well, no residual, h20 flush done as ordered, repositioned q 2h with heels off loaded with pillows, contact isolation observed.
[2017-03-08 15:27] VITALS: BP 168/88
--- NOTE | 2017-03-08 16:00 | NUR ---
awake, sometimes able to say what she wants, watching tv, tele a fib controlled, repositioned q 2h, contact isolation maintained
--- NOTE | 2017-03-08 18:47 | NUR ---
resting in bed, denies of pain,no distress noted, all needs attended and met, tolerating tube fdg well, safety measures maintained
[2017-03-08 19:00] VITALS: BP 151/73
--- NOTE | 2017-03-08 20:00 | NUR ---
patient awake,alert,cooperative,no acute respiratory distress,spo2 98%-99% on T-piece 30%,patient tolerated g tube feeding well,no residual.patient denies pain,able to communicated needs known,f/c drainage adequate urine out put.
[2017-03-08] MEDS: ENOXAPARIN SODIUM 30 MG/0.3 ML DISP.SYRIN SUBCUT SCH (21:05)
[2017-03-09 00:44] VITALS: BP 144/80
[2017-03-09] MEDS: MEROPENEM 500 MG in IV NORMAL SALINE 50 ML IV SCH ×2 (02:10→13:54)
[2017-03-09 04:00] VITALS: BP 135/75
[2017-03-09] MEDS: PEPTAMEN AF 1000ML BAG NG PRN (05:41)
--- NOTE | 2017-03-09 06:00 | NUR ---
PATIENT SLEPT INTERMITTENTLY,VITAL SIGNS STABLE AND WNL,NO ACUTE DISTRESS,PATIENT ALERT,CALM AND COOPERATIVE.CONTINUE CONTACT ISOLATION FOR ESBL (WOUND) AND BACTEREMIA VRE.
[2017-03-09 06:57] LABS: BASOPHILS % (AUTO) 0.1 % (0.0-2.0); EOSINOPHILS # (AUTO) 0.3 K/uL (0.0-0.7); EOSINOPHILS % (AUTO) 3.3 % (0.0-7.0); HEMATOCRIT 29.6 % (31.2-41.9); HEMOGLOBIN 9.5 g/dL (10.9-14.3); LYMPHOCYTES # (AUTO) 1.4 K/uL (20.0-40.0); LYMPHOCYTES % (AUTO) 15.2 % (20.5-51.5); MEAN CORPUSCULAR HGB CONC 32 g/dL (32.3-35.6); MEAN CORPUSCULAR VOLUME 84.2 fL (75.5-95.3); MONOCYTES # (AUTO) 0.3 K/uL (2.0-10.0); MONOCYTES % (AUTO) 3.3 % (0.0-11.0); NEUTROPHILS # (AUTO) 7.4 K/uL (1.8-8.9); NEUTROPHILS % (AUTO) 78.1 % (38.5-71.5); PLATELET COUNT (AUTO) 231 K/uL (179-408); RED BLOOD CELL COUNT(AUTO) 3.52 MIL/uL (3.63-4.92); RED CELL DISTRIBUTION WIDTH 17.1 % (12.3-17.7); WHITE BLOOD COUNT (AUTO) 9.4 K/uL (3.8-11.8)
[2017-03-09 07:17] LABS: ALBUMIN 1.6 g/dL (3.4-5.0); BILIRUBIN,TOTAL 0.4 mg/dL (0.2-1.0); CALCIUM 7.5 mg/dL (8.5-10.1); CREATININE 1.1 mg/dL (0.6-1.3); MAGNESIUM 1.6 mg/dL (1.8-2.4); PHOSPHOROUS 3.2 mg/dL (2.5-4.9); POTASSIUM 3.6 mmol/L (3.5-5.1); TOTAL PROTEIN, SERUM 5.7 g/dL (6.4-8.2)
--- NOTE | 2017-03-09 08:00 | NUR ---
CONTINUE SERAFIN OBSERVATION, IV ANTIBIOTICS ORDERED, DC PLANNING IN PLACED SEE BASE MANAGER NOTES. NO SIGNS OF ACUTE PAIN OR DISTRESS. TOLERATING P-MIST VIA TRACH 30% SATURATING 100
[2017-03-09] MEDS: LINEZOLID IV 600 MG in PREMIXED 1 EACH IV SCH ×2 (08:10→20:56)
[2017-03-09] MEDS: SODIUM HYPOCHLORITE 0.125% 473 ML BOTTLE TP SCH (08:10)
[2017-03-09] MEDS: PANTOPRAZOLE SODIUM 40 MG VIAL IV SCH (08:10)
[2017-03-09] MEDS: Z GUARD REMEDY PASTE 57 GM TUBE TOP PRN (08:11)
[2017-03-09 09:42] LABS: BAND % (MANUAL) 1 % (0-10); EOSINOPHILS % (MANUAL) 3 % (0-8); LYMPHOCYTES % (MANUAL) 19 % (20-40); MONOCYTES % (MANUAL) 6 % (2-10); NEUTROPHILS % (MANUAL) 71 % (42-75)
[2017-03-09 09:43] LABS: ANISOCYTOSIS 1+; PLATELET ESTIMATE ADEQUATE; TOXIC GRANULATION 1+
[2017-03-09] MEDS: MAGNESIUM SULFATE/D5W 100 ML IV SCH ×2 (10:57→12:41)
[2017-03-09] MEDS: HYDROMORPHONE 1 MG/1 ML DISP.SYRIN IV PRN ×2 (11:19→17:45)
[2017-03-09 11:40] VITALS: BP 155/84
--- NOTE | 2017-03-09 12:45 | NUR ---
SEEN BY DR CUADRA WITH ORDER FOR SPEECH EVAL FOR SWALLOWING
--- NOTE | 2017-03-09 15:24 | NUR ---
NO ACUTE CHANGE SEEN BY DR SCOTT WITH ORDERS, CHANGED STATUS TO TELE
[2017-03-09 15:58] VITALS: BP 102/64
[2017-03-09] MEDS ORDERED: LORAZEPAM 2 MG/1 ML VIAL IV PRN (17:30)
--- NOTE | 2017-03-09 18:07 | NUR ---
SEEN BY DR Lily VELASQUEZ SEE NOTES
--- NOTE | 2017-03-09 20:00 | NUR ---
patient awake, slightly restless,able to communicate needs known,c/o lower legs pain, but does not want pain medication,suction via trach,moderate amount pale yellowish thick mucous,HOB elevated,contact isolation maintains.
[2017-03-09 20:16] VITALS: BP 137/77
[2017-03-09] MEDS: ENOXAPARIN SODIUM 30 MG/0.3 ML DISP.SYRIN SUBCUT SCH (20:57)
--- NOTE | 2017-03-09 23:00 | NUR ---
NGT feeding accidently came out,reinserted in right nare w/o difficulty,abdominal x rays ordered to confirm placement.
[2017-03-10 00:01] VITALS: BP 139/86
--- NOTE | 2017-03-10 01:00 | NUR ---
x rays results,confirm right position, restart NGT feeding with Peptamen at 75 ml/hr,patient tolerated well.
[2017-03-10] MEDS: MEROPENEM 500 MG in IV NORMAL SALINE 50 ML IV SCH ×2 (01:44→14:27)
[2017-03-10] MEDS: PEPTAMEN AF 1000ML BAG NG PRN (02:58)
[2017-03-10 04:00] VITALS: BP 125/83
--- NOTE | 2017-03-10 06:35 | NUR ---
patient more alert,verbally responsive,controlled A fib on tele monitor,tolerated ng tube feeding well,no residual.
[2017-03-10 07:11] LABS: CALCIUM 7.7 mg/dL (8.5-10.1); MAGNESIUM 2.1 mg/dL (1.8-2.4)
[2017-03-10] MEDS: SODIUM HYPOCHLORITE 0.125% 473 ML BOTTLE TP SCH (08:37)
[2017-03-10] MEDS: LINEZOLID IV 600 MG in PREMIXED 1 EACH IV SCH ×2 (08:37→20:42)
[2017-03-10] MEDS: Z GUARD REMEDY PASTE 57 GM TUBE TOP PRN (08:38)
[2017-03-10] MEDS: PANTOPRAZOLE SODIUM 40 MG VIAL IV SCH (08:40)
[2017-03-10 11:04] VITALS: BP 144/86
--- NOTE | 2017-03-10 11:33 | NUR ---
NO ACUTE CHANGE, SEEN BY DR DEE CHANGE STATUS TO MED/SURG
[2017-03-10 15:03] VITALS: BP 147/87
--- NOTE | 2017-03-10 15:57 | NUR ---
TO X-RAY FOR VIDEO SWALLOW ACCOMPANIED BY RESPIRATORY WITH X-RAY TECH
--- NOTE | 2017-03-10 18:29 | NUR ---
PER ST PATIENT OK TO START ON PUREE WITH THIN LIQUID. DR MACHADO MADE AWARE WITH ORDER TO START FEEDING RECOMMENDED BY ST. SEE NOTES
[2017-03-10 19:00] VITALS: BP 135/79
--- NOTE | 2017-03-10 20:00 | NUR ---
PATIENT AWAKE,ALERT,NO ACUTE DISTRESS,PATIENT PASS VIDEO SWALLOWING TEST,REQUESTED SOME WATER AND ICE CHIP,GIVEN SMALL AMOUNT WITH SPOON,HOB ELEVATED,ASPIRATION PRECAUTION ,PATIENT TOLERATED WELL.
[2017-03-10] MEDS: ENOXAPARIN SODIUM 30 MG/0.3 ML DISP.SYRIN SUBCUT SCH (20:43)
--- NOTE | 2017-03-11 00:05 | NUR ---
PATIENT SLEEP WELL ,NO DISTRESS,ORAL CARE AND TRACH SUCTION GIVEN SMALL AMOUNT OF SECRETION,RECTAL TUBE DRAINAGE LIQUID STOOL.
[2017-03-11] MEDS: MEROPENEM 500 MG in IV NORMAL SALINE 50 ML IV SCH ×2 (02:12→15:00)
[2017-03-11 04:00] VITALS: BP 170/78
--- NOTE | 2017-03-11 05:42 | NUR ---
BP 170/78, WAS NOTIFIED,WILL BE IN TO SEE PATIENT SOON.TOTAL URINE OUT HZZ=752QD/12 HR SHIFT,BILATERAL ARMS GENERALIZED EDEMATOUS ,ELEVATED ON PILLOWS,PATIENT RESTING COMFORTABLE,DENIES ABDOMINAL PAIN.
--- NOTE | 2017-03-11 07:00 | NUR ---
PATIENT RECEIVED IN ROOM RESTING WITH EYES CLOSED IN NO ACUTE DISTRESS. TACH TO COOL AEROSOL MIST. RESPIRATIONS EVEN AND UNLABORED. SAFETY MAINTAINED. CALL LIGHT AT REACH.
[2017-03-11] MEDS: NITROGLYCERIN OINT 1 GM PACKET TP SCH ×2 (08:37→13:47)
[2017-03-11] MEDS: SODIUM HYPOCHLORITE 0.125% 473 ML BOTTLE TP SCH (08:39)
[2017-03-11] MEDS: LINEZOLID IV 600 MG in PREMIXED 1 EACH IV SCH (08:52)
[2017-03-11] MEDS ORDERED: PANTOPRAZOLE ORAL SUSPENSION 40 MG SUSPDR.PKT GT SCH (09:00)
[2017-03-11 09:16] LABS: ABG BASE EXCESS -0.1 mmol/L; ABG HCO3 23.9 mmol/L; ABG PCO2 36.4 mmHg (35.0-45.0); ABG PH 7.435 (7.350-7.450); ABG SITE LEFT RADIAL; ABG TOTAL HEMOGLOBIN 10.9 G/dL (12.0-16.0); COHb 0.9 % (0.5-1.5); MetHb 0.2 % (0.0-1.5); O2Hb 95.1 % (94.0-97.0)
--- NOTE | 2017-03-11 09:50 | NUR ---
PATIENT WITH POOR APPETITE AT THIS TIME. STATES IS NOT HUNGRY.
[2017-03-11 11:45] VITALS: BP 129/71
--- NOTE | 2017-03-11 15:19 | NUR ---
The patient will be discharged today back to [facility] [ ; [address] [place] [address]] via [facility]. Spoke to her son, Graham [ ], about the discharge plan and he stated that he agrees with the discharge. Also spoke with Salome, savanah from [facility], who confirmed that they will re-admit the patient today. Her RN, Mary, is aware of her discharge plan and will call the facility for the report.
[2017-03-11] MEDS ORDERED: ENOX30DI SUBCUT (15:36)
[2017-03-11] MEDS ORDERED: Nitroglycerin TP (15:36)
[2017-03-11] MEDS ORDERED: SODI473S8 TP (15:36)
[2017-03-11] MEDS ORDERED: LINE600I2 IV (15:36)
[2017-03-11] MEDS ORDERED: MINE454C11 TOP (15:36)
[2017-03-11] MEDS ORDERED: MERO500V IV (15:36)
[2017-03-11 15:37] LABS: BASOPHILS # (AUTO) 0.1 K/uL (0.0-8.0); BASOPHILS % (AUTO) 0.9 % (0.0-2.0); EOSINOPHILS # (AUTO) 0.3 K/uL (0.0-0.7); EOSINOPHILS % (AUTO) 2.6 % (0.0-7.0); HEMATOCRIT 28.5 % (31.2-41.9); HEMOGLOBIN 9.6 g/dL (10.9-14.3); LYMPHOCYTES # (AUTO) 1.3 K/uL (20.0-40.0); LYMPHOCYTES % (AUTO) 11.8 % (20.5-51.5); MEAN CORPUSCULAR HEMOGLOBIN 28.3 uug (24.7-32.8); MEAN CORPUSCULAR HGB CONC 34 g/dL (32.3-35.6); MONOCYTES # (AUTO) 0.5 K/uL (2.0-10.0); NEUTROPHILS # (AUTO) 8.5 K/uL (1.8-8.9); NEUTROPHILS % (AUTO) 79.7 % (38.5-71.5); PLATELET COUNT (AUTO) 220 K/uL (179-408); RED BLOOD CELL COUNT(AUTO) 3.39 MIL/uL (3.63-4.92); RED CELL DISTRIBUTION WIDTH 18.1 % (12.3-17.7); WHITE BLOOD COUNT (AUTO) 10.7 K/uL (3.8-11.8)
[2017-03-11 15:40] VITALS: BP 144/84
[2017-03-11 15:48] LABS: ALBUMIN 1.7 g/dL (3.4-5.0); BILIRUBIN,TOTAL 0.5 mg/dL (0.2-1.0); CALCIUM 7.9 mg/dL (8.5-10.1); CREATININE 0.9 mg/dL (0.6-1.3); MAGNESIUM 1.7 mg/dL (1.8-2.4); POTASSIUM 4.1 mmol/L (3.5-5.1); TOTAL PROTEIN, SERUM 5.7 g/dL (6.4-8.2)
--- NOTE | 2017-03-11 18:44 | NUR ---
DISCHARGING PATIENT TO [facility] IN A STABLE CONDITION. VSS. DENIED PAIN. DISCHARGE INSTRUCTIONS PROVIDED. SBAR REPORT GIVEN TO JONH IVEY AT [facility]. PATIENT DISCHARGED WITH [facility] TO [facility] AND [facility]. PATIENT TRANSFERRED VIA AMBULANCE.
== END 2017-03-11 18:40 | DRG 853 ==
LOC: ER 10:41 → CCU 14:26 → MED 03-03 22:30 → TELE-TD 03-03 22:53 → CCU 03-04 15:45 → TELE-TD 03-06 19:35 → TELE 03-09 14:33 → MED 03-10 11:01
PROVIDERS: ADMIT Internal Medicine; ATTEND Internal Medicine
PROC: 06HM33Z Insertion of Infusion Device into Right Femoral Vein, Percutaneous Approach (ICD-10-PCS; 2017-03-01)
PROC: 0J983ZZ Drainage of Abdomen Subcutaneous Tissue and Fascia, Percutaneous Approach (ICD-10-PCS; 2017-03-04)
PROC: 0JB80ZZ Excision of Abdomen Subcutaneous Tissue and Fascia, Open Approach (ICD-10-PCS; principal; 2017-03-04 13:44)
PROC: 05HC33Z Insertion of Infusion Device into Left Basilic Vein, Percutaneous Approach (ICD-10-PCS; 2017-03-08)
PROC: B54NZZA Ultrasonography of Left Upper Extremity Veins, Guidance (ICD-10-PCS; 2017-03-08)
DX: A41.81 Sepsis due to Enterococcus (principal); N17.0 Acute kidney failure with tubular necrosis; G92 Toxic encephalopathy; E43 Unspecified severe protein-calorie malnutrition; K94.23 Gastrostomy malfunction; Z68.41 Body mass index [BMI] 40.0-44.9, adult; J96.10 Chronic respiratory failure, unspecified whether with hypoxia or hypercapnia; E87.0 Hyperosmolality and hypernatremia; I13.0 Hypertensive heart and chronic kidney disease with heart failure and stage 1 through stage 4 chronic kidney disease, or unspecified chronic kidney disease; L03.311 Cellulitis of abdominal wall; N39.0 Urinary tract infection, site not specified; Z68.43 Body mass index [BMI] 50.0-59.9, adult; E87.2 Acidosis; L02.211 Cutaneous abscess of abdominal wall; Y83.9 Surgical procedure, unspecified as the cause of abnormal reaction of the patient, or of later complication, without mention of misadventure at the time of the procedure; E66.01 Morbid (severe) obesity due to excess calories; E11.22 Type 2 diabetes mellitus with diabetic chronic kidney disease; E87.6 Hypokalemia; I50.9 Heart failure, unspecified; Z88.0 Allergy status to penicillin; Z90.710 Acquired absence of both cervix and uterus; Z93.0 Tracheostomy status; N18.9 Chronic kidney disease, unspecified; I48.2 Chronic atrial fibrillation; E78.5 Hyperlipidemia, unspecified; I25.10 Atherosclerotic heart disease of native coronary artery without angina pectoris; Z86.73 Personal history of transient ischemic attack (TIA), and cerebral infarction without residual deficits; Z85.3 Personal history of malignant neoplasm of breast; Z79.899 Other long term (current) drug therapy; E88.09 Other disorders of plasma-protein metabolism, not elsewhere classified; D64.9 Anemia, unspecified; Z22.322 Carrier or suspected carrier of Methicillin resistant Staphylococcus aureus; Z87.01 Personal history of pneumonia (recurrent); Z87.440 Personal history of urinary (tract) infections; Y82.8 Other medical devices associated with adverse incidents; Y92.129 Unspecified place in nursing home as the place of occurrence of the external cause; Z16.21 Resistance to vancomycin; D72.819 Decreased white blood cell count, unspecified; D69.6 Thrombocytopenia, unspecified; L89.152 Pressure ulcer of sacral region, stage 2; L89.629 Pressure ulcer of left heel, unspecified stage; L89.619 Pressure ulcer of right heel, unspecified stage; R13.10 Dysphagia, unspecified; R65.20 Severe sepsis without septic shock; L98.8 Other specified disorders of the skin and subcutaneous tissue
CPT/HCPCS: 36415; 36600; 70030-TC; 70450; 71010; 74000; 74230; 76770; 83605; 83735; 83970; 84100; 84155; 84156; 84165; 84300; 85025; 85730; 87040; 87070; 87075; 87077; 87086; 92506; 92526; 92610; 92611; 93005; 94002; A4217; A4649; A4663; C1751; C9113; J0360; J1170; J1265; J1580; J1650; J2020; J2185; J2250; J3010; J3370; J3475; J3480; J3490; J7030; J7050; J7060; J7070

== ENCOUNTER 2017-03-24 19:04 | Emergency (ER) | payer MEDICARE, OTHER ==
[~2017-03-24] VITALS: Ht 157.5 cm; Wt 99.8 kg
[~2017-03-24 19:04] MED LIST: ACET160S GT; ACETAMINOPHEN SUPP RC; AMLO10TA2 GT; ASCO500T10 GT; ATOR40TA GT; DIPH25TA25 PO; ENOX30DI SUBCUT; FAMO20TA8 GT; FURO40TA5 GT; HYDR1LIQ4 GT; HYDR1TOW4 TP; IPRA3AMP IH; LACT1TAB12 PO; LINE600I2 IV; LORA0.5T PO; MERO500V IV; METO50TA3 GT; METO5SOL19 GT; MINE454C11 TOP; Nitroglycerin TP; POTA20PA4 GT; SODI473S8 TP; VITA113.3 TP; ZINC220C6 GT; [UNRECOGNIZED DRUG - OTHER] GT
--- NOTE | 2017-03-24 19:15 | NUR ---
Pt BIB ambulance, reports pt had right radial fx about 5 weeks ago, now sent here due to c/o finger pain, right hand. Pt c/o 9/10 pain in right hand and fingers, Pt has sensation and slight movement, limeted by pain, cap refill <2sec in fingers but distal flanges are white. No other complaints, no distress noted. Pt on 3lpm O2 via trach tube, breathing and talking on her own. Pt has 20g IV left hand from facility, [facility].
[2017-03-24] MEDS: HYDROCODONE/ACETAMINOPHEN 3.33 MG-100 MG/5 ML SOL PO ONE (19:20)
[2017-03-24] MEDS ORDERED: HYDROCODONE/ACETAMINOPHEN 3.33 MG-100 MG/5 ML SOL ONE (19:28)
--- NOTE | 2017-03-24 19:50 | NUR ---
4" fiberglass splint applied to right arm, secured with elastic bandages. Arm placed in sling. PMS intact.
--- NOTE | 2017-03-24 20:39 | NUR ---
called report to "Dale" at [facility]. Gave report and pt chart to EMT's, transporting pt back to facility.
== END 2017-03-24 21:02 | disposition home or self-care (01) ==
LOC: ER 19:12
DX: S52.121A Displaced fracture of head of right radius, initial encounter for closed fracture (principal); S52.501A Unspecified fracture of the lower end of right radius, initial encounter for closed fracture; C50.919 Malignant neoplasm of unspecified site of unspecified female breast; E78.5 Hyperlipidemia, unspecified; E66.9 Obesity, unspecified; I10 Essential (primary) hypertension; I48.91 Unspecified atrial fibrillation; Z88.0 Allergy status to penicillin; Z88.1 Allergy status to other antibiotic agents; W18.30XA Fall on same level, unspecified, initial encounter; Y93.89 Activity, other specified; Y92.89 Other specified places as the place of occurrence of the external cause; Y99.8 Other external cause status
CPT/HCPCS: A4663